=== PATIENT | female | born 1960 | race Two or more races ===

== ENCOUNTER → 2020-05-14 | Emergency (ER) | payer OTHER ==
[~2020-05-14] VITALS: Ht 160 cm; Wt 86.2 kg
[~2020-05-14] MED LIST: CRESTOR40 MG; CYMBALTA20 MG; RAYOS5 MG; VOLTAREN100 GM
== END | disposition left against medical advice (07) ==
LOC: ER
DX: S42.462A Displaced fracture of medial condyle of left humerus, initial encounter for closed fracture (principal); S50.02XA Contusion of left elbow, initial encounter; R10.2 Pelvic and perineal pain; W01.198A Fall on same level from slipping, tripping and stumbling with subsequent striking against other object, initial encounter; Y93.01 Activity, walking, marching and hiking; Y92.018 Other place in single-family (private) house as the place of occurrence of the external cause; Y99.8 Other external cause status

== ENCOUNTER 2022-03-03 20:03 | Inpatient (IN) | payer OTHER ==
[~2022-03-03] VITALS: Ht 167.6 cm; Wt 85.3 kg
--- NOTE | 2022-03-03 20:18 | NUR ---
SE REICBE PTE ACOMPANADA POR WINN HIJA ISABELA QUIEN REFIERE FEMINA NO ESTA COMIENDO,NAUSEAS,VOMITOS CON RESIDUAL GASTRICO, NO EVACUA Y DOLOR ESTOMACAL HACE VARIOS MESES. SE AIDA S/V Y SE UBICA.
--- NOTE | 2022-03-03 20:54 | NUR ---
SE EDUCA A PTE SOBRE [place] MEDICO ESTA REFIERE ENTENDER. SE AIDA MUESTRAS DE LABORATORIO UTILZIANDO MEDIDAS ASEPTICAS. SE COLOCA H/L A PTE.
--- NOTE | 2022-03-04 07:56 | NUR ---
SE RECIBE PACIENTE FEMINA DE 61 ANOS UBICADA EN AREA DE OBSERVACION EN LILA CON BARANDAS ELEVADAS. PACIENTE ALERTA AL MOMENTO Y PERIODOS DE DESORIENTACION, UBICADA EN LILA ALEJANDRA 10 EN COMPANIA DE FAMILIAR. PACIENTE MANTIENE TERAPIA INTRAVENOSA Y DRIP DE KCL 1000ML .9 CON 40MEQ. PACIENTE EN ESPERA DE CONSULTA CON DR. DAJUAN BUNCH.
[2022-03-05] MEDS ORDERED: FOLIC ACID1 MG (15:46)
[2022-03-05] MEDS ORDERED: DICLOFENAC POTA50 MG (15:46)
[2022-03-05] MEDS ORDERED: LEVOTHYROXINE137 MCG (15:47)
[2022-03-05] MEDS ORDERED: LANSOPRAZOLE30 MG (15:47)
[2022-03-09] MEDS ORDERED: PROTONIX40 MG PO (14:46)
[2022-03-09] MEDS ORDERED: DULOXETINE HCL60 MG PO (14:46)
[2022-03-09] MEDS ORDERED: METRONIDAZOLE500 MG PO ×2 (14:46→14:51)
[2022-03-09] MEDS ORDERED: INTESTINEX680 M2 PO (14:46)
[2022-03-09] MEDS ORDERED: CIPRO500 MG PO ×2 (14:46→14:51)
[2022-03-09] MEDS ORDERED: LEVOTHYROXINE150 MCG PO (14:46)
== END 2022-03-09 16:40 | disposition home or self-care (01) | DRG 690 ==
LOC: ER 20:03 → SURG 03-04 15:11
PROVIDERS: ADMIT Internal Medicine; ATTEND Internal Medicine
PROC: BW21ZZZ Computerized Tomography (CT Scan) of Abdomen and Pelvis (ICD-10-PCS; principal; 2022-03-03)
PROC: BW28ZZZ Computerized Tomography (CT Scan) of Head (ICD-10-PCS; 2022-03-08)
DX: N39.0 Urinary tract infection, site not specified (principal); K52.89 Other specified noninfective gastroenteritis and colitis; N20.0 Calculus of kidney; K29.70 Gastritis, unspecified, without bleeding; E86.0 Dehydration; E87.6 Hypokalemia; K21.9 Gastro-esophageal reflux disease without esophagitis; E03.8 Other specified hypothyroidism; R47.81 Slurred speech

== ENCOUNTER 2022-05-21 22:49 | Emergency (ER) | payer OTHER ==
[~2022-05-21] VITALS: Ht 157.5 cm; Wt 77.1 kg
[~2022-05-21 22:49] MED LIST changes: +CIPRO500 MG PO; +DICLOFENAC POTA50 MG; +DULOXETINE HCL60 MG PO; +FOLIC ACID1 MG; +INTESTINEX680 M2 PO; +LANSOPRAZOLE30 MG; +LEVOTHYROXINE137 MCG; +LEVOTHYROXINE150 MCG PO; +METRONIDAZOLE500 MG PO; +PROTONIX40 MG PO
== END 2022-05-22 07:25 | disposition home or self-care (01) ==
LOC: ER 22:49
DX: N20.1 Calculus of ureter (principal); Z20.822 Contact with and (suspected) exposure to COVID-19; I47.1 Supraventricular tachycardia; Z88.0 Allergy status to penicillin; R10.9 Unspecified abdominal pain; K76.0 Fatty (change of) liver, not elsewhere classified; N20.0 Calculus of kidney